=== PATIENT | female | born 1975 | race Caucasian/White ===

== ENCOUNTER → 2017-06-16 | Outpatient (CLI) | payer OTHER | LOC: BMCIMAGING 15:15 | PROVIDERS: ATTEND Internal Medicine | DX: Z31.83 Encounter for assisted reproductive fertility procedure cycle (principal) ==

== ENCOUNTER → 2017-11-25 | Outpatient (CLI) | payer OTHER | LOC: FIMAGING 11:06 | DX: O09.512 Supervision of elderly primigravida, second trimester (principal); O09.812 Supervision of pregnancy resulting from assisted reproductive technology, second trimester; Z3A.22 22 weeks gestation of pregnancy ==

== ENCOUNTER → 2018-07-22 | Outpatient (CLI) | payer OTHER | LOC: BMCIMAGING 08:46 | PROVIDERS: ATTEND Internal Medicine | DX: N92.6 Irregular menstruation, unspecified (principal); N83.202 Unspecified ovarian cyst, left side ==